=== PATIENT | male | born 1950 | race Caucasian/White ===

== ENCOUNTER 2023-11-01 11:46 | Outpatient (OUT) | payer MEDICARE, MEDICAID, SELFPAY ==
[2023-11-02 04:08] LABS: PSA, Free 1.13 ng/mL; Prostate Specific Ag 4.6 ng/mL (0.0-4.0)
== END 2023-11-01 11:47 | disposition home or self-care (01) ==
LOC: LAB 11:53
PROVIDERS: PCP Family Medicine; Visit Provider Urology
DX: R97.20 Elevated prostate specific antigen [PSA] (principal); Z80.42 Family history of malignant neoplasm of prostate
CPT/HCPCS: 36415; 84153; 84154

== ENCOUNTER 2024-02-29 11:03 | Observation (INO) | payer MEDICARE, MEDICAID, SELFPAY ==
[2024-02-29] VITALS (37 sets, daily range): BP systolic 75–176; BP diastolic 50–130; PULSE 87–107; TEMP 36.7–37.6; O2SAT 86–96; BMI 35.9; BMI 33.3
--- NOTE | 2024-02-29 11:29 | ED.URI1 ---
HPI - URI/Sore Throat General Chief Complaint: Upper Respiratory Infection Stated Complaint: COUGH, SOB Time Seen by Provider: 02/29/24 11:20 Source: patient Limitations: no limitations History of Present Illness HPI Narrative: This patient is here for evaluation of cough congestion difficulty breathing 1 week ago. He does not know if he was running a fever. He started having diarrhea a day or so ago. No vomiting. His appetite and fluid intakes been off as well. Related Data Home Medications ?Medication ?Instructions ?Recorded ?Confirmed amlodipine 10 mg tablet 10 mg PO DAILY 02/29/24 02/29/24 atorvastatin 10 mg tablet 10 mg PO DAILY 02/29/24 02/29/24 lisinopril 2.5 mg tablet 2.5 mg PO DAILY 02/29/24 02/29/24 metformin 500 mg tablet 500 mg PO DAILY 02/29/24 02/29/24 Allergies Allergy/AdvReac Type Severity Reaction Status Date / Time No Known Drug Allergies Allergy Verified 02/29/24 11:10 Exam Narrative Exam Narrative: Patient is awake alert pleasant no obvious distress. He denies any dyspnea but his says that when he was at home he was breathing heavy even when he would walk down the hallway. His oximetry here is 88 to 92% on room air it improves with low levels of nasal cannula. But as noted below it decreases below 90% when we have him walk in the hallway He is awake alert oriented skin and integument were normal with no scleral icterus or evidence of pallor or anemia. His lungs have scattered wheezing and rales bilaterally. Heart rate and rhythm are normal with no ectopy. He is not having any chest pain. Denies abdominal discomfort. He says he has lost a little bit of weight with decreased appetite. He says he does not like to skip meals. Examination neurologically he is good historian pleasant no evidence of confusion or altered mental status. Constitutional Vital Signs, click to edit/add: Last Vital Signs Temp 99.7 F 02/29/24 11:07 Pulse 89 02/29/24 11:07 Resp 18 02/29/24 11:07 BP 125/79 02/29/24 11:07 Pulse Ox 92 L 02/29/24 11:07 O2 Del Method Room Air 02/29/24 11:07 Course Vital Signs Vital signs: Vital Signs Temperature 99.7 F 02/29/24 11:07 Pulse Rate 89 02/29/24 11:07 Respiratory Rate 18 02/29/24 11:07 Blood Pressure 125/79 02/29/24 11:07 Pulse Oximetry 92 L 02/29/24 11:07 Oxygen Delivery Method Room Air 02/29/24 11:07 Temperature 99.7 F 02/29/24 11:07 Pulse Rate 89 02/29/24 11:07 Respiratory Rate 18 02/29/24 11:07 Blood Pressure 125/79 02/29/24 11:07 Pulse Oximetry 92 L 02/29/24 11:07 Oxygen Delivery Method Room Air 02/29/24 11:07 MDM - URI/Sore Throat MDM Narrative Medical decision making narrative: Patient's chest x-ray shows/suggest bibasilar infiltrates. He was given a DuoNeb aerosol. Routine laboratory testing did not show any gross abnormalities. At the completion of therapy we ambulate him in the hallway without oxygen and he dropped down to 86 to 87%. He corrected quickly with supplemental oxygen. He was started on intravenous antibiotics in the ER. Will discuss admission with the on-call hospitalist Discharge Plan Discharge Chief Complaint: Upper Respiratory Infection Clinical Impression: Pneumonia Patient Disposition: Admitted as Observation Time of Disposition Decision: 13:59 Prescriptions / Home Meds: No Action metformin 500 mg tablet 500 mg PO DAILY lisinopril 2.5 mg tablet 2.5 mg PO DAILY atorvastatin 10 mg tablet 10 mg PO DAILY amlodipine 10 mg tablet 10 mg PO DAILY Print Language: Macedonian Referrals: Sherwin Flores MD [Primary Care Provider] - 1 week
--- NOTE | 2024-02-29 11:30 | XR_ITS ---
The [address] [address] Patient Name: SHIKHA AVENDANO MRN: [id number] date: 1950 Sex: M Assigned Patient Location: ER Current Patient Location: ER Accession/Order Number: [id number] Exam Date: 02/29/2024 12:12 Report Date: 02/29/2024 12:43 At the request of: [facility] Procedure: XR chest 2V EXAMINATION: XR chest 2V HISTORY: Cough COMPARISON: No relevant comparison available. FINDINGS: LUNGS: Mild patchy and strandy opacities within lung bases bilaterally. Mild wall thickening of a few central bronchi. VASCULATURE: No increased pulmonary vasculature. PLEURA: No pneumothorax, effusion, or pleural thickening. CARDIAC: No cardiomegaly or cardiac silhouette abnormality. MEDIASTINUM: No visible mass or adenopathy. BONES: Mild anterior wedging of approximately T11 and T12 vertebral bodies. OTHER: Negative. XR/XR chest 2V IMPRESSION: 1. Mild bibasilar infiltrates suggestive of pneumonia. 2. Age-indeterminate mild compression fractures of approximately T11 and T12 vertebral bodies. Electronically authenticated by: ARIS CANCHOLA Date: 02/29/2024 12:43
[2024-02-29 11:42] LABS: Basophils Percent Auto 0.5 % (0.2-2.0); Eosinophils Percent Auto 0.2 % (0.9-7.0); Hematocrit 46.4 % (42.0-54.0); Immature Granulocytes Abs Auto 0.03 10^3/uL (0.00-0.03); Immature Granulocytes Pct Auto 0.5 % (0.0-0.5); Lymphocytes Absolute Auto 1.4 10^3/uL (1.2-3.8); Mean Corpuscular HGB Conc 32.3 g/dL (29.9-35.2); Mean Corpuscular Hemoglobin 29.3 pg (25.9-34.0); Mean Corpuscular Volume 90.6 fL (80.0-94.0); Mean Platelet Volume 9.6 fL (9.5-13.5); Monocytes Absolute Auto 0.4 10^3/uL (0.3-0.8); Neutrophils Absolute Auto 3.9 10^3/uL (1.4-6.5); Neutrophils Percent Auto 67.8 % (43.0-75.0); Platelet Count 183 10^3/uL (150-450); Red Blood Count 5.12 10^6/uL (4.70-6.10); Red Cell Distribution Width 13.7 % (11.0-15.0); White Blood Count 5.8 10^3/uL (4.0-11.0)
[2024-02-29] MEDS: IPRATROPIUM/ALBUTEROL SULFATE 3 ML AMPUL.NEB IH ×3 (11:43→23:13)
[2024-02-29 11:52] LABS: Alanine Aminotransferase 27 U/L (16-63); Albumin Globulin Ratio 0.8; Albumin Level 3.3 g/dL (3.4-5.0); Alkaline Phosphatase 80 U/L (46-116); Anion Gap 15.1; Aspartate Amino Transferase 23 U/L (15-37); BUN Creatinine Ratio 17.5; Bilirubin Total 0.7 mg/dL (0.2-1.0); Calcium 8.4 mg/dL (8.5-10.1); Carbon Dioxide 23.6 mmol/L (21.0-32.0); Chloride 100 mmol/L (98-107); Estimated GFR (African America >60 (>=60); Estimated GFR (Non-African Ame >60 (>=60); Globulin 3.9 g/dL; Glucose 183 mg/dL (74-106); Potassium 3.7 mmol/L (3.5-5.1); Sodium 135 mmol/L (136-145); Total Protein 7.2 g/dL (6.4-8.2)
[2024-02-29 11:55] LABS: Lactate/Lactic Acid 1.6 mmol/L (0.4-2.0)
[2024-02-29] MEDS: 0.9 % SODIUM CHLORIDE 1,000 ML 999 ML IV (12:04)
--- NOTE | 2024-02-29 13:21 | ECG_ITS ---
The [facility] Test Date: 2024-02-29 Pat Name: SHIKHA AVENDANO Department: Room: - Gender: Male [employer]: : 1950 Requested By: Order Number: [id number] Reading MD: RAD SANTANA Measurements Intervals [place] Rate: 105 P: 43 CT: 136 QRS: 1 QRSD: 100 T: 53 QT: 336 QTc: 397 Interpretive Statements 1120 Sinus tachycardia 8102 Low QRS voltage in chest leads 9140 abnormal rhythm ECG Compared to ECG 04/30/2022 10:41:02 Low QRS voltage now present Sinus rhythm no longer present Sinus arrhythmia no longer present Electronically Signed On 02-29-2024 22:47:23 EDT by RAD SANTANA
--- NOTE | 2024-02-29 14:00 | PC.NURSE ---
Pt ambulated in nails at slow pace approximately 140 ft on RA. Pt HR 112 and dropped his SpO2 to 88%. notified of the same. Pt back to room and place on 3L NC, Pt denies any distress or the feeling of being SOB. Pt in bed and repositioned for comfort.
[2024-02-29] MEDS: CEFTRIAXONE 1,000 MG in 0.9 % SODIUM CHLORIDE 50 ML 100 MG IV (14:14)
[2024-02-29 15:50] LABS: Glucometer 101 mg/dL (74-106)
[2024-02-29] MEDS: ENOXAPARIN SODIUM 40 MG/0.4 ML SYRINGE SUBQ (16:21)
[2024-02-29] MEDS: LEVOFLOXACIN IN DEXTROSE 5 % 750 MG/150 ML IV.SOLN 100 MG IV (16:21)
[2024-02-29] MEDS: 0.9 % SODIUM CHLORIDE 250 ML 10 ML IV (16:21)
[2024-02-29 20:34] LABS: Glucometer 132 mg/dL (74-106)
[2024-03-01 03:10] VITALS: PULSE 95; O2SAT 91
[2024-03-01] MEDS: IPRATROPIUM/ALBUTEROL SULFATE 3 ML AMPUL.NEB IH ×2 (03:10→07:11)
[2024-03-01 03:23] VITALS: PULSE 85; O2SAT 90
[2024-03-01 04:43] VITALS: BP 138/80; PULSE 91; TEMP 36.7; O2SAT 94
[2024-03-01 04:57] LABS: Hematocrit 39.6 % (42.0-54.0); Hemoglobin 12.9 g/dL (14.0-18.0); Mean Corpuscular HGB Conc 32.6 g/dL (29.9-35.2); Mean Corpuscular Hemoglobin 29.4 pg (25.9-34.0); Mean Corpuscular Volume 90.2 fL (80.0-94.0); Mean Platelet Volume 9.4 fL (9.5-13.5); Platelet Count 153 10^3/uL (150-450); Red Blood Count 4.39 10^6/uL (4.70-6.10); Red Cell Distribution Width 13.6 % (11.0-15.0); White Blood Count 4.6 10^3/uL (4.0-11.0)
[2024-03-01 05:12] LABS: Anion Gap 13.2; BUN Creatinine Ratio 15.1; Calcium 8.2 mg/dL (8.5-10.1); Carbon Dioxide 25.3 mmol/L (21.0-32.0); Chloride 103 mmol/L (98-107); Estimated GFR (African America >60 (>=60); Estimated GFR (Non-African Ame >60 (>=60); Glucose 115 mg/dL (74-106); Potassium 3.5 mmol/L (3.5-5.1); Sodium 138 mmol/L (136-145)
[2024-03-01 05:52] LABS: Atypical Lymphocytes Abs Man 0.55; Lymphocytes Absolute Manual 1.01 10^3/uL (1.20-3.80); Monocytes Absolute Manual 0.41 10^3/uL (0.30-0.80); Segmented Neut Absolute Manual 2.62 10^3/uL (1.4-6.5)
[2024-03-01 07:12] VITALS: PULSE 87; O2SAT 92
[2024-03-01 08:00] VITALS: BP 136/73; PULSE 88; TEMP 36.5; O2SAT 94
[2024-03-01] MEDS: LISINOPRIL 5 MG TABLET 2.5 MG PO (09:03)
[2024-03-01] MEDS: METFORMIN HCL 500 MG TABLET PO (09:03)
[2024-03-01] MEDS: AMLODIPINE BESYLATE 5 MG TABLET 10 MG PO (09:04)
--- NOTE | 2024-03-01 09:20 | P.HP_ITS ---
<Statement entered by Harjinder Ann MD - 03/01/24 11:13> Patient seen and examined, agree with assessment and plan below. Presented with SOB and cough x 1 week. Found pneumonia and borderline hypoxia. Admitted and started on levaquin and duoneb. Much improved overnight and normal SpO2 on room air. Discharged home with oral antibiotics and albuterol. Diagnosis: 1. Pneumonia 2. DM2 without complication 3. HTN HPI H&P: HPI History of Present Illness Chief complaint: COUGH, SOB Narrative: 06/01/24 0915 This is a 73-year-old male patient with a past medical history as outlined below including DM 2 and HTN; who presented to the ED yesterday morning complaining of URI symptoms x 1 week and tightness in the chest. He also noted diarrhea x 2 yesterday. Workup in the ED revealed mild BLL infiltrates on chest x-ray, but no tachycardia, tachypnea, or leukocytosis. He was apparently mildly hypoxic with ambulation in the ED and was admitted to observation yesterday afternoon. On arrival to the medical floor nursing noted that his fingers have poor circulation and they tested his O2 sats using an ear probe, and the patient was able to maintain his O2 sats above 92% even with prolonged ambulation. At the time of my exam today the patient is sitting up in a bedside chair. He denies chest pain, shortness of breath, or dyspnea. He reports that the breathing treatments have helped with the sensation of tightness in his chest. He reports a nonproductive cough but denies fevers or chills. Nursing has already ambulated the patient in the room and he was able to ambulate out while talking and kept his O2 sats at 92% or above. DISCHARGE: As the patient is feeling improved and he is able to maintain his oxygenation without O2 supplementation, he is being discharged home in stable condition. He is prescribed Levaquin for 7 days and an albuterol HFA inhaler. He should follow-up with his PCP in 5 to 7 days. Opioid HPI Opioid Management Most Recent Opioid Data: Last Pain Scale 0 03/01/24 04:43 Last Pain Assessment 03/01/24 10:31 Last ORT Total Score 3 02/29/24 14:50 Last ORT Risk Category Low Risk 02/29/24 14:50 Review of Systems ROS Status of ROS 10 or more systems reviewed and unremark able except as noted in history and below [facility] Medical History (Updated 03/01/24 @ 10:00 by Phyllis Thomas NP) Hypertension ?I10 - Essential (primary) hypertension (ICD-10) Diabetes mellitus ?E11.9 - Type 2 diabetes mellitus without complications (ICD-10) Hyperlipidemia ?E78.5 - Hyperlipidemia, unspecified (ICD-10) Surgical History (Updated 02/29/24 @ 15:55 by Jaquelin Kulkarni LPN) History of prostate surgery ?Z98.890 - Other specified postprocedural states (ICD-10) H/O arthroscopic knee surgery ?Z98.890 - Other specified postprocedural states (ICD-10) History of cholecystectomy ?Z90.49 - Acquired absence of other specified parts of digestive tract (ICD- 10) Social History (Updated 02/29/24 @ 15:57 by Jaquelin Kulkarni LPN) Smoking status: Never smoker Second hand tobacco smoke exposure: No Non-prescribed substance use: denies use Previous occupational history: factory Known occupational exposures/hazards: Yes Known occupational exposures/hazards details: plastics Highest level of school completed/degree received: some college, no degree Do you want help with school or training: No In a typical week, how many times do you talk on the telephone with family, friends, or neighbors: 3 or more times per week How often do you get together with friends or relatives: 3 or more times per week How often do you attend hoahaoism or anglican services: never Do you belong to any clubs or organizations such as hoahaoism groups unions, fraternal or athletic groups, or school groups: no Little interest or pleasure in doing things: not at all Feeling down, depressed, or hopeless: not at all Feel stressed/tense/nervous/anxious/difficulty sleeping: not at all Due to disability, difficulty making decisions: No Do you think of yourself as: straight/heterosexual Gender Identity: male Meds Home Medications and Allergies Home Medications ?Medication ?Instructions ?Recorded ?Confirmed ?Type amlodipine 10 mg tablet 10 mg PO DAILY 02/29/24 02/29/24 History atorvastatin 10 mg tablet 10 mg PO DAILY 02/29/24 02/29/24 History lisinopril 2.5 mg tablet 2.5 mg PO DAILY 05/14/24 05/14/24 History metformin 500 mg tablet 500 mg PO DAILY 02/29/24 02/29/24 History Lactobacillus acidophilus 100 mg 100 mmu cells PO BID 14 days #28 03/01/24 Rx (1 billion cell) capsule caps albuterol sulfate 90 mcg/actuation 2 inh inhalation Q4H PRN shortness 03/01/24 Rx aerosol inhaler of breath or wheezing #6.7 grams guaifenesin 600 mg tablet, 600 mg PO BID 7 days #14 tabs 03/01/24 Rx extended release 12 hr levofloxacin 750 mg tablet 750 mg PO DAILY 7 days #7 tabs 03/01/24 Rx Allergies Allergy/AdvReac Type Severity Reaction Status Date / Time No Known Drug Allergies Allergy Verified 02/29/24 11:10 Exam Constitutional Vital Signs, click to edit/add: Last Vital Signs Temp 98.0 F 03/01/24 04:43 Pulse 87 03/01/24 07:12 Resp 18 03/01/24 07:12 BP 138/80 03/01/24 04:43 Pulse Ox 92 L 03/01/24 07:12 O2 Del Method Room Air 03/01/24 07:12 O2 Flow Rate 3 02/29/24 14:53 Common normals: no apparent distress, oriented x3, alert and well nourished General appearance: cooperative Orientation/consciousness: Yes awake HENLA Common normals: normocephalic, head/scalp atraumatic, hearing grossly normal bilaterally, external nose normal and moist oral mucous membranes Eye Common normals: PERRL, EOMs intact bilaterally, conjunctivae normal and no scleral icterus Alignment: alignment normal Eyelid: eyelids normal Neck & C-Spine Common normals: full ROM, supple and no JVD Chest Common normals: inspection of chest normal Chest: symmetrical chest wall rise Respiratory Common normals: normal respiratory effort, no retractions and no use of accessory muscles Effort & inspection: able to speak in complete sentences Auscultation: rales (Faint. RLL post, LLL ant) Cardio Common normals: no JVD, regular rate, regular rhythm, S1 normal heart sound, S2 normal heart sound, no gallops, no clicks, no murmurs, no rub and peripheral pulses 2+ throughout GI Common normals: Normal to inspection, nondistended, normoactive bowel sounds present, soft to palpation, non-tender, no hepatosplenomegaly, no masses and no bruits Bladder/kidney exam: bladder normal to palpation Back & Pelvis Common normals: thoracic and lumbar spine normal to inspection Extremity Common normals: normal capillary refill and no pedal edema General: normal exam except as noted; no clubbing and no cyanosis Neuro [place] Coma Scale: GCS not evaluated Common normals: CN's II-XII intact bilaterally, moves all extremities, no focal motor deficits and no sensory deficits noted Speech: speech normal Motor exam: strength 5/5 throughout Psych Common normals: mental status grossly normal, thought process normal, affect normal and activity/motor behavior normal Results Labs Labs: Short CBC 02/29/24 03/01/24 Range/Units 11:16 04:36 WBC 5.8 4.6 (4.0-11.0) 10^3/uL Hgb 15.0 12.9 L (14.0-18.0) g/dL Hct 46.4 39.6 L (42.0-54.0) % Plt Count 183 153 (150-450) 10^3/uL BMP 02/29/24 03/01/24 11:16 04:36 Sodium 135 L 138 Potassium 3.7 3.5 Chloride 100 103 Carbon Dioxide 23.6 25.3 BUN 18.0 14.0 Creatinine 1.03 0.93 Glucose 183 H 115 H Calcium 8.4 L 8.2 L Liver Function 02/29/24 Range/Units 11:16 Total Bilirubin 0.7 (0.2-1.0) mg/dL AST 23 (15-37) U/L ALT 27 (16-63) U/L Alkaline Phosphatase 80 (46-116) U/L Albumin 3.3 L (3.4-5.0) g/dL Pulse Oximetry Attestation: I have reviewed the pertinent pulse oximetry results. Imaging Chest x-ray: Attestation: I have reviewed the pertinent imaging results. Radiologist's impression: IMPRESSION: 1. Mild bibasilar infiltrates suggestive of pneumonia. 2. Age-indeterminate mild compression fractures of approximately T11 and T12 vertebral bodies. Assessment and Plan Assessment and Plan (1) Pneumonia: Assessment and Plan: Acute * Adm obs * Reported hypoxia with ambulation but no evidence of this since arrival on the [facility] floor last night while using an ear probe for O2 sat monitoring * IVPB Levaquin initiated last night, continue PO Levaquin x 7 days * Duonebs q4h overnight w/ improved chest tightness * Albuterol HFA inhaler at d/c - 2 puffs q4h PRN * Guaifenesin ER BID - continue at home (OTC) * Probiotic BID x 7-10 days * D/C home in stable condition Qualifiers: Laterality: bilateral Lung location: lower lobe of lung Pneumonia type: due to unspecified organism Qualified Code(s): J18.9 - Pneumonia, unspecified organism (2) Diabetes mellitus: Assessment and Plan: Chronic * Continue home metformin Qualifiers: Diabetes mellitus complication status: without complication Diabetes mellitus terminal operator insulin use: without snf use Diabetes mellitus type: type 2 Qualified Code(s): E11.9 - Type 2 diabetes mellitus without complications (3) Hypertension: Assessment and Plan: Chronic * Continue home amlodipine, lisinopril (4) Hyperlipidemia: Assessment and Plan: Chronic * Continue home statin
[2024-03-01 09:48] VITALS: O2SAT 92
--- NOTE | 2024-03-01 10:03 | PC.NURSE ---
[employer] Crewmember called and left message at [facility] to schedule follow up appt. [employer]member asked if they call before noon, to please call this news writer to schedule. If not, they should call the patient to schedule this appt.
--- NOTE | 2024-03-01 10:43 | CM.NOTE ---
Medicare Outpatient Observation Notice reviewed and discussed with patient. Pt. verbalized understanding and signed the form. Original given to patient and copy placed in patient?s chart.
--- NOTE | 2024-03-01 10:44 | CM.NOTE ---
Rounds made with Dr. Ann. Plan for discharge today. Mr. Sanford in agreement with plan.
--- NOTE | 2024-03-02 11:41 | CM.DCFOLLOWU ---
1st attempt, no answer 03/02/24
--- NOTE | 2024-03-03 15:10 | CM.DCFOLLOWU ---
Person spoke with: Patient How are you feeling? well How is your pain? no pain Did you understand your discharge instructions? yes Do you have any questions about your discharge instructions? no questions Were you given any prescriptions at discharge? yes Were you able to get your prescriptions filled? yes Do you understand how to take your medications as ordered? yes, has to cut one in half due to taking a whole making him sick, advised to let his PCP know at follow up Do you have any questions about your follow up appointment and do you plan to keep your follow up appointment? no, questions, pt scheduled follow up Is there anything else that you would like to discuss? no Questions/Comments/Concerns/Other: N/A
== END 2024-03-01 11:20 | disposition home or self-care (01) ==
LOC: ER 14:00 → ICU 03-01 09:23 → MS 03-03 11:48
PROVIDERS: Admitting Provider Family Medicine; Emergency Provider Emergency Medicine Emergency Medical Services; PCP Family Medicine; Visit Provider Nurse Practitioner
DX: J18.9 Pneumonia, unspecified organism (principal); E11.9 Type 2 diabetes mellitus without complications; I10 Essential (primary) hypertension; E78.5 Hyperlipidemia, unspecified; Z98.890 Other specified postprocedural states; Z90.49 Acquired absence of other specified parts of digestive tract; Z79.899 Other long term (current) drug therapy; Z79.84 Long term (current) use of oral hypoglycemic drugs
CPT/HCPCS: 36415; 71046; 80048; 80053; 82948; 83605; 85007; 85025; 85027; 93005; 94640; 94761; 96361; 96365; 96366; 96367; 96372; 99285; G0378

== ENCOUNTER 2024-10-21 10:29 | Outpatient (OUT) | payer MEDICARE, MEDICAID, SELFPAY ==
[2024-10-22 07:08] LABS: PSA, Free 1.46 ng/mL
== END 2024-10-21 10:30 | disposition home or self-care (01) ==
LOC: LAB 10:30
PROVIDERS: PCP Family Medicine; Visit Provider Urology
DX: R97.20 Elevated prostate specific antigen [PSA] (principal)
CPT/HCPCS: 36415; 84153; 84154